=== PATIENT | male | born 1995 | race American Indian/Alaskan Native ===

== ENCOUNTER 2021-06-23 03:58 | Emergency (ER) | payer SELFPAY ==
[2021-06-23] MEDS ORDERED: CYCLOBENZAPRINE 10 MG TAB PO ONE ×2 (07:27→07:28)
[2021-06-23] MEDS ORDERED: KETOROLAC 30 MG/1 ML INJ IM ONE (07:27)
[2021-06-23] MEDS ORDERED: oxyCODONE /ACETAMINOPHEN 5-325MG TAB PO ONE (07:28)
[2021-06-23] MEDS ORDERED: predniSONE 20 MG TAB PO ONE (07:29)
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
[2021-06-23 11:17] VITALS: BP 127/89
== END 2021-06-23 11:14 | disposition home or self-care (01) ==
LOC: ED 03:58
DX: M54.9 Dorsalgia, unspecified (principal); M54.50 Low back pain, unspecified; R51.9 Headache, unspecified; F17.200 Nicotine dependence, unspecified, uncomplicated; V89.2XXA Person injured in unspecified motor-vehicle accident, traffic, initial encounter; Y93.89 Activity, other specified; Y92.89 Other specified places as the place of occurrence of the external cause; Y99.8 Other external cause status
CPT/HCPCS: 70450; 72125; 72131; 96372; 99284; J1885